=== PATIENT | female | born 1955 | race Asian ===

== ENCOUNTER → 2018-05-31 | Outpatient (CLI) | payer OTHER | END | disposition home or self-care (01) | LOC: RADPV 15:36 | PROVIDERS: ATTEND Legal Medicine | DX: M79.89 Other specified soft tissue disorders (principal); M79.672 Pain in left foot; M25.572 Pain in left ankle and joints of left foot ==

== ENCOUNTER → 2018-07-18 | Outpatient (CLI) | payer OTHER | END | disposition home or self-care (01) | LOC: RADPV 12:14 | PROVIDERS: ATTEND Legal Medicine | DX: M25.775 Osteophyte, left foot (principal); M79.89 Other specified soft tissue disorders ==